=== PATIENT | female | born 1950 | race Caucasian/White ===

== ENCOUNTER → 2017-04-08 | Day surgery (SDC) | payer OTHER ==
[2017-04-03 15:00] LABS: BASOPHILS % 0.4 % (0.0-1.0); EOSINOPHILS # (AUTO) 0.2 (0.0-0.4); EOSINOPHILS % 2.4 % (0.0-6.0); HEMATOCRIT 42.4 % (34.2-44.1); HEMOGLOBIN 14.2 g/dL (12.0-16.0); LYMPHOCYTES # (AUTO) 2.2 (1.0-3.2); LYMPHOCYTES % 29.1 % (18.0-39.1); MEAN CORPUSCULAR HEMOGLOBIN 31.6 pg (28-32); MEAN CORPUSCULAR HGB CONC 33.5 g/dL (31-35); MEAN CORPUSCULAR VOLUME 94.2 fL (81-99); MONOCYTES # (AUTO) 0.6 (0.2-0.8); MONOCYTES % 8.4 % (4.4-11.3); NEUTROPHILS # (AUTO) 4.4 (2.1-6.9); NEUTROPHILS % 59.2 % (38.7-80.0); PLATELET COUNT 234 x10e3/uL (140-360); RED CELL DISTRIBUTION WIDTH 12.1 % (11.7-14.4)
[2017-04-03 15:19] LABS: ANION GAP 11.2 mmol/L (8-16); BLOOD UREA NITROGEN 17 mg/dL (7-26); BUN/CREATININE RATIO 22 (6-25); CALCIUM 9.1 mg/dL (8.4-10.2); CARBON DIOXIDE 30 mmol/L (22-29); CHLORIDE 103 mmol/L (98-107); CREATININE, SERUM 0.76 mg/dL (0.57-1.11); EST GLOMERULAR FILTRATION RATE > 60 ML/MIN (60-); GLUCOSE 93 mg/dL (74-118); POTASSIUM 4.2 mmol/L (3.5-5.1); SODIUM 140 mmol/L (136-145)
--- NOTE | 2017-04-03 15:47 | Diagnostic Imaging Report ---
PROCEDURE: Frontal and lateral views of the chest. COMPARISON: None. INDICATIONS: PRE OP BREAST EXCISION FINDINGS: Lines/tubes: None. Lungs: The lungs are well inflated. Mildly increased lucency in the upper lungs and mildly increased retrosternal air, which may reflect mild COPD. There is no evidence of pneumonia or pulmonary edema. Pleura: There is no pleural effusion or pneumothorax. Heart and mediastinum: The heart and the mediastinum are normal. Bones: No acute bony abnormality. IMPRESSION: 1. No acute cardiopulmonary abnormalities. Anjel Vasquez M.D. Dictated by: Anjel Vasquez M.D. on 04/03/2017 at 15:57 Electronically approved by: Anjel Vasquez M.D. on 04/03/2017 at 15:57
[~2017-04-08] MED LIST: ACETAMINOPHEN 1000 MG/100 ML IV ONE; DEXAMETHASONE SOD PHOS INJ 4 MG/ML VIAL ONE; FENTANYL CITRATE/PF 100MCG/2 ML INJ ONE; GABAPENTIN300 MG PO; LIDOCAINE HCL 2% LOCAL INJ 5 ML SDV VIAL INJ ONE; LIPITOR10 MG PO; MELOXICAM7.5 MG PO; MIDAZOLAM HCL 2 MG/2 ML VIAL ONE; MULTIVITAMIN PO; ONDANSETRON HCL INJ 2 MG/ML VIAL ONE; PAROXETINE HCL20 MG PO; PROPOFOL IV EMULSION 10 MG/ML 20 ML VIAL ONE; ROCURONIUM BROMIDE 10 MG/ML 5ML VIAL ONE; SEVOFLURANE INHAL SOLN 250 ML PEN BTL ONE; SUCCINYLCHOLINE 200 MG/10 ML SYR ONE; TRAZODONE HCL50 MG PO; VIT D3 PO; [UNRECOGNIZED DRUG - OTHER] PO
--- OUTSIDE RECORDS SUMMARY | 2017-04-08 10:10 | XMS REPORT ---
Author [facility] Address Unknown Phone Unavailable Care Team Providers Care Soaker Helper Name Role Phone CAROLYN ROSAS Unavailable Unavailable Problems This patient has no known problems. Allergies, Adverse Reactions, Alerts This patient has no known allergies or adverse reactions. Medications This patient has no known medications. Encounters Start Date/Time End Date/Time Encounter Type Admission Type Attending [facility] Facility Care Department Encounter ID 2017-03-11 00:00:00 2017-03-11 00:00:00 Outpatient [facility] [id number] 2017-03-09 13:34:39 2017-03-09 13:34:39 Outpatient [facility] [id number] 2017-03-09 13:34:27 2017-03-09 13:34:27 Outpatient [facility] [id number] 2017-02-17 10:54:13 2017-02-17 10:54:13 Outpatient [facility] [id number] 2017-02-06 00:00:00 2017-02-06 00:00:00 Outpatient [facility] [id number] 2017-01-28 00:00:00 2017-01-28 00:00:00 Outpatient [facility] [id number] 2016-12-08 00:00:00 2016-12-08 00:00:00 Outpatient [facility] [id number] 2016-10-28 00:00:00 2016-10-28 00:00:00 Outpatient [facility] [id number] 2016-10-08 09:55:53 2016-10-08 09:55:53 Outpatient [facility] [id number] 2016-10-01 10:31:01 2016-10-01 10:31:01 Outpatient [facility] [id number] 2016-09-11 00:00:00 2016-09-11 00:00:00 Outpatient [facility] [id number] 2016-09-03 13:14:36 2016-09-03 13:14:36 Outpatient [facility] [id number] 2016-07-31 15:56:33 2016-07-31 15:56:33 Outpatient [facility] [id number] Results Test Description Test Time Test Comments Text Results Atomic Results Result Comments CHEST 2 VIEWS [place] [address] Patient Name: KEVIN SORIA MR #: [id number] : 1950 Age/Sex: 67/F Req #: [id number] Adm Physician: Ordered by: CAROLYN ROSAS MD Report #: [id number] Location: [place] Room/Bed: Procedure: [id number] DX/CHEST 2 VIEWS Exam Date: 04/03/17 Exam Time: 1515 REPORT STATUS: Signed PROCEDURE: Frontal and lateral views of the chest. COMPARISON: None. INDICATIONS: PRE OP BREAST EXCISION FINDINGS: Lines/tubes: None. Lungs: The lungs are well inflated. Mildly increased lucency in the upper lungs and mildly increased retrosternal air, which may reflect mild COPD. There is no evidence of pneumonia or pulmonary edema. Pleura: There is no pleural effusion or pneumothorax. Heart and mediastinum: The heart and the mediastinum are normal. Bones: No acute bony abnormality. IMPRESSION: 1. No acute cardiopulmonary abnormalities. Luis M Vasquez M.D. Dictated by: LuisM Vasquez M.D. on 04/03/2017 at 15:57 Electronically approved by: Luis M Vasquez M.D. on 04/03/2017 at 15:57 Dictated By: LUIS M VASQUEZ MD [id number] Transcribed By: MANJIT on 04/03/17 [id number] COPY TO: CAROLYN ROSAS MD
--- NOTE | 2017-04-08 13:52 | Diagnostic Imaging Report ---
Lymphoscintigraphy Reason for Exam: RIght breast cancer; scheduled for sentinel lymph node biopsy Radiopharmaceutical: Tc-99m filtered sulfur colloid 715 microcuries Report: The radiotracer was given as two separate injections intradermally at the edge of the right areola at the 9 o'clock and 12 o'clock positions. A single focal area of tracer accumulation is seen in the right axilla. No accumulation of tracer is seen in the midline of the chest or in the neck. Impression: Injection for sentinel lymph node mapping. A single sentinel lymph node is identified in the right axilla. Signed by: Dr. Robina Eaton M.D. on 04/08/2017 1:48 PM
--- NOTE | 2017-04-08 15:02 | Operative Report ---
DATE OF PROCEDURE: April 08, 2017 PREOPERATIVE DIAGNOSIS: Carcinoma of the right breast. POSTOPERATIVE DIAGNOSIS: Carcinoma of the right breast. PROCEDURES 1. Right segmental mastectomy. 2. Right axillary sentinel lymph node excision with lymph node mapping. FREELANCE PATTERNMAKER: None. ANESTHESIA: General. INDICATIONS AND FINDINGS: Patient is a 67-year-old female who was found have a mass in the right breast. Biopsy revealed infiltrating ductal cell carcinoma. At surgery, patient was found to have a mass in the right breast at 12 o'clock position at about 5 cm from the nipple, which was removed with a segmental mastectomy with mass in the middle of the segmental mastectomy, grossly margins being free. Single sentinel node was identified and excised, and this was negative for metastatic disease. TECHNIQUE: After adequate general anesthesia and patient in supine position, the right breast and axilla were prepped and draped in sterile fashion with Hopewell solution. An elliptical incision was made encompassing the right breast, carried down through the subcutaneous tissue and a segment of breast where the mass was palpable was completely excised down to the chest wall. The mass was identified within the middle of the excised specimen with margins grossly free of tumor on my inspection. Hemostasis was achieved with electrocautery. The wound was irrigated with sterile water. Wound was infiltrated with 0.5% Marcaine. Wound was then closed with 2-0 Vicryl in the subcutaneous tissue and angely for the skin. Using the Neoprobe, the right axilla was examined and an area of increased activity was identified. Incision was made over this area and carried down through the subcutaneous tissue. Using Neoprobe, the sentinel node was localized and this was completely excised from surrounding tissues and submitted for frozen section, which was negative for metastatic disease. Hemostasis in the wound was seen to be adequate. The wound was then infiltrated with 0.5% Marcaine. The wound was closed with 3-0 Vicryl in the subcutaneous tissue and angely for the skin. Sterile dressing was applied to each wound. Patient tolerated the procedure well. Estimated blood loss was 20 mL. There were no complications. All counts were correct. Patient was taken to the recovery room in satisfactory condition. Job#: [id number] SAK cc:Dr. Marcel Deluna
== END | disposition home or self-care (01) ==
LOC: NM 10:08 → OR 10:08
PROVIDERS: ATTEND Surgery
DX: C50.911 Malignant neoplasm of unspecified site of right female breast (principal); D05.11 Intraductal carcinoma in situ of right breast; Z01.810 Encounter for preprocedural cardiovascular examination; Z01.812 Encounter for preprocedural laboratory examination; Z01.818 Encounter for other preprocedural examination; Z87.891 Personal history of nicotine dependence
CPT/HCPCS: 36415; 71046; 78195; 80048; 85025; 88307; 88333; 93005; A9541; J1100; J2001; J2250; J2405

== ENCOUNTER 2019-09-26 06:52 | Observation (INO) | payer MEDICARE, OTHER ==
[~2019-09-26] VITALS: Ht 157.5 cm; Wt 53.5 kg
[~2019-09-26 06:52] MED LIST changes: -ACETAMINOPHEN 1000 MG/100 ML IV ONE; +ARIMIDEX1 MG PO; -DEXAMETHASONE SOD PHOS INJ 4 MG/ML VIAL ONE; -FENTANYL CITRATE/PF 100MCG/2 ML INJ ONE; +HYDROCHLOROTHIA25 MG PO; -LIDOCAINE HCL 2% LOCAL INJ 5 ML SDV VIAL INJ ONE; -MIDAZOLAM HCL 2 MG/2 ML VIAL ONE; -ONDANSETRON HCL INJ 2 MG/ML VIAL ONE; -PROPOFOL IV EMULSION 10 MG/ML 20 ML VIAL ONE; -ROCURONIUM BROMIDE 10 MG/ML 5ML VIAL ONE; -SEVOFLURANE INHAL SOLN 250 ML PEN BTL ONE; -SUCCINYLCHOLINE 200 MG/10 ML SYR ONE; +VIT C PO
[2019-09-26] MEDS ORDERED: CELECOXIB 200 MG CAP ONE (07:18)
[2019-09-26] MEDS ORDERED: GABAPENTIN 300 MG CAP ONE (07:18)
[2019-09-26] MEDS ORDERED: DEXAMETHASONE SOD PHOS 10 MG/1 ML VIAL ONE (07:18)
[2019-09-26] MEDS ORDERED: CEFAZOLIN SOD 1 GM/NS 50ML 100 ML IV ONE (07:19)
[2019-09-26] MEDS ORDERED: ROPIVACAINE 246.25 MG, EPINEPHRINE HCL 1:1000 1ML 0.5 MG, CLONIDINE HCL 0.08 MG, KETORO... INJ ONE ×5 (08:00)
[2019-09-26] MEDS ORDERED: BACITRACIN 50,000 UNIT VIAL ONE (09:16)
[2019-09-26] MEDS ORDERED: VANCOMYCIN HCL 1,000 MG ONE (09:16)
[2019-09-26] MEDS ORDERED: TRANEXAMIC ACID 1,000 MG/10 ML ML ONE (09:17)
[2019-09-26] MEDS ORDERED: SODIUM CHLORIDE 0.9% 500ML 500 ML ONE (09:17)
[2019-09-26] MEDS ORDERED: ACETAMINOPHEN 1000 MG/100 ML 100 ML IV ONE (10:11)
[2019-09-26] MEDS ORDERED: DOCUSATE SODIUM 100 MG CAP PO PRN (11:00)
[2019-09-26] MEDS ORDERED: ZOLPIDEM TARTRATE 5 MG TAB PO PRN (11:00)
[2019-09-26] MEDS ORDERED: ONDANSETRON HCL INJ 2MG/ML 2ML 2 MG/ML VIAL IV PRN (11:00)
[2019-09-26] MEDS ORDERED: ACETAMINOPHEN 650 MG SUPP PR PRN (11:00)
[2019-09-26] MEDS ORDERED: KETOROLAC TROMETHAMINE 30 MG/ML VIAL IV PRN (11:00)
[2019-09-26] MEDS ORDERED: HYDROCODONE/APAP 5MG-325MG TAB PO PRN (11:00)
[2019-09-26] MEDS ORDERED: DIPHENHYDRAMINE HCL INJ 50 MG/ML VIAL IV PRN (11:00)
[2019-09-26] MEDS ORDERED: FENTANYL CITRATE/PF 100MCG/2 ML INJ ONE (11:29)
--- NOTE | 2019-09-26 11:47 | Operative Report ---
DATE OF PROCEDURE: 09/26/2019 SURGEON: Kwabena Malave MD SENIOR PHP SOFTWARE DEVELOPER: Vitaliy Abarca, certified PA. PREOPERATIVE DIAGNOSIS: Osteoarthritis, right knee. POSTOPERATIVE DIAGNOSIS: Osteoarthritis, right knee. PROCEDURE: Right total knee arthroplasty. INDICATIONS: The patient is an active 69-year-old lady, who has advanced osteoarthritis of her right knee. She has failed conservative management and would like to proceed with a right total knee replacement. The risks and benefits of the procedure were explained. All of her questions were answered. She states she understands and wishes to proceed. PROCEDURE IN DETAIL: The patient was brought to the operating room and placed under general anesthetic. She received prophylactic antibiotics, a regional block and tranexamic acid in the holding area. Her right lower extremity was prepped and draped in a sterile manner. A preoperative time-out was performed. The extremity was exsanguinated and a proximal tourniquet was inflated to 250 mmHg. An anterior approach with a medial parapatellar arthrotomy was performed. Clear synovial fluid was removed from the joint. Soft tissue releases were performed to bring the knee up into flexion with the patella everted. Meniscal remnants, marginal osteophytes, and the cruciate ligaments were removed. A Sher[employer] Persona knee system with a medial congruent tibial insert was used throughout the case. An extramedullary cutting guide was used to resect the proximal tibia. The cut was referenced off the affected medial compartment. The tibia was noted to be a size C. The central fin punch was drilled and impacted. Attention was directed towards the distal femur. An intramedullary cutting guide was used to resect the distal femur in 5 degrees of valgus and rotation referencing off a combination of landmarks including Whitesides line, the epicondylar axis, and the posterior condyles. The femoral component was a size 4. The anterior and posterior cuts were made. A trial reduction was then performed. A 10 mm medial congruent tibial insert provided appropriate soft tissue balancing in full extension and 90 degrees of flexion. The patella was resurfaced with a 29 mm patellar button. The thickness was checked before and after, and was right around 20 mm. The trial implants were then all removed. A 100 mL premixed pericapsular GENOVEVA injection was placed into the surrounding soft tissue. The knee was thoroughly irrigated with a shower tip pulsatile lavage. All bone cuts had been irrigated with a spray mixture of diluted polymyxin and vancomycin spray. The components were cemented into place using a single mix of high viscosity Biomet cement preloaded with end with gentamicin. Care was taken to remove extravasated cement. The wound was further irrigated while the cement cured. The arthrotomy was then closed with interrupted #1 Ethibond. The knee was put through flexion and extension to ensure a secure closure. The skin was closed with subcuticular Vicryl and angely. A sterile Aquacel bandage was applied. The patient was extubated and transported to the recovery room in stable condition. Blood loss was minimal. All needle and sponge counts were correct. Kwabena Malave MD DR/KALEB /[id number]
[2019-09-26] MEDS ORDERED: MORPHINE SULFATE INJ 4 MG/ML INJ 1ML ONE (12:15)
--- NOTE | 2019-09-26 12:35 | Diagnostic Imaging Report ---
EXAMINATION: KNEE RIGHT 1-2 VIEWS INDICATION: Postoperative COMPARISON: None FINDINGS: AP and lateral views of the right knee demonstrate immediate postoperative findings of right total knee replacement. Alignment is anatomic. No unexpected fracture. Postoperative soft tissue emphysema and small joint effusion. Surgical skin angely in place. IMPRESSION: Anatomic alignment status post right total knee replacement. Signed by: Josiah Parker MD on 09/26/2019 12:31 PM
[2019-09-26 15:22] VITALS: BP_SYST 103; BP_SYST 94; BP_DIAS 57; BP_DIAS 60
--- NOTE | 2019-09-26 15:22 | NUR ---
Pt received from PACU at this time. pt is aox3 and able to verbalize needs. Pt complains of right knee but refuses pain medication at this time. Breaths are even and unlabored on room air. Dressing to right knee is dry and intact.
[2019-09-26 16:53] VITALS: BP 103/57
[2019-09-26] MEDS: CELECOXIB 200 MG CAP PO SCH (17:22)
[2019-09-26] MEDS: CEFAZOLIN SOD 1 GM/NS 50ML 50 ML IV SCH (17:22)
[2019-09-26] MEDS: ASPIRIN 325 MG TAB PO SCH (17:22)
[2019-09-26] MEDS: SODIUM CHLORIDE 0.9% 1000ML 1,000 ML IV SCH (17:22)
--- NOTE | 2019-09-26 19:19 | NUR ---
WALKING ROUNDS PERFORMED, RECEIVED PT LAYING SUPINE IN BED WITH (R) LEG IN CPM, SETTINGS 0 EXTENSION, 50 FLEXION. NO S/SX OF DISTRESS NOTED. LEFT PT LAYING SEMI FOWLERS IN BED, BED IN LOW LOCKED POSITION, SIDE RAILS UPX2, CALL LIGHT AND PHONE WITHIN REACH.
[2019-09-26 20:00] VITALS: BP 95/57
[2019-09-26 20:57] VITALS: BP 95/57
[2019-09-27] VITALS: BP 92/60
[2019-09-27] MEDS: CEFAZOLIN SOD 1 GM/NS 50ML 50 ML IV SCH ×2 (02:04→09:03)
[2019-09-27] MEDS: SODIUM CHLORIDE 0.9% 1000ML 1,000 ML IV SCH (03:00)
[2019-09-27 04:00] VITALS: BP 119/64
[2019-09-27 04:49] LABS: HEMATOCRIT 35.6 % (34.2-44.1); HEMOGLOBIN 11.8 g/dL (12.0-16.0)
--- NOTE | 2019-09-27 07:00 | NUR ---
bedside shift report received pt in stable condition, denies pain at this time, updated on poc voiced understanding, dsg to right knee c/d/i, no othe co vocied call light in reach will continue to monitor
--- NOTE | 2019-09-27 08:17 | NUR ---
DR GUERRA OFFICE PREARRANGED FOLLOWING DISCHARGE PLAN OF:[address], [place] [address] HOME HEALTH WITH INTERIM CONFIRMED WITH [facility] [phone] DME 3 IN ONE COMMODE, CPM AND ROLLING WALKER WITH WHEELS. PROVIDED BY [employer] [phone] [employer] [employer] SIGNED AND ON CHART COPY LEFT WITH PATIENT GAVE CARD FOR QUESTIONS AND OR CONCERNS.
[2019-09-27 08:28] VITALS: BP 112/76
--- NOTE | 2019-09-27 08:30 | NUR ---
CALLED BACK INTO ROOM, SHE STATES SHE IS GOING TO HER [facility] FOR RECOVERY [address] [facility] [id number] , UPDATED HOME HEALTH
[2019-09-27 08:49] VITALS: BP 112/76
[2019-09-27] MEDS ORDERED: GABAPENTIN 300 MG CAP PO SCH (09:00)
[2019-09-27] MEDS ORDERED: GABAPENTIN 100 MG CAP PO SCH (09:00)
[2019-09-27] MEDS ORDERED: ATORVASTATIN 10 MG TAB PO SCH (09:00)
[2019-09-27] MEDS ORDERED: PAROXETINE HCL 20 MG TAB PO SCH (09:00)
[2019-09-27] MEDS ORDERED: ANASTROZOLE 1 MG TAB PO SCH (09:00)
[2019-09-27] MEDS: ASPIRIN 325 MG TAB PO SCH (09:02)
[2019-09-27] MEDS: CELECOXIB 200 MG CAP PO SCH (09:02)
--- NOTE | 2019-09-27 10:22 | Consultation ---
DATE OF CONSULTATION: Brief Consultation PCP: Dr. Tim Escalona. REASON FOR CONSULTATION: Medical management. HISTORY OF PRESENT ILLNESS: The patient is a pleasant 69-year-old female, status post right total knee replacement. The patient is otherwise stable. Home medication resumed. The patient had no chest pain or shortness of breath. PAST MEDICAL HISTORY: Osteoarthritis. PAST SURGICAL HISTORY: Three , three rotator cuff surgery, just now right total knee replacement. Right breast surgery for breast cancer. Tonsillectomy. SOCIAL HISTORY: The patient does not smoke or use alcohol. No regular drugs. ALLERGIES: TO CODEINE. HOME MEDICATIONS: The patient is on Arimidex, Lipitor, gabapentin, HCTZ, Paxil, and vitamin D3. PHYSICAL EXAMINATION: VITAL SIGNS: Temperature is 98, blood pressure 119/64, pulse rate is 72, and respirations 18. GENERAL: The patient is not in distress. Awake. HEENT: Normocephalic and atraumatic. Anicteric. NECK: Supple grossly. PULMONARY: Clear. CARDIOVASCULAR: Regular rate and rhythm. ABDOMEN: Soft and unremarkable. EXTREMITIES: Status post right knee replacement. NEUROLOGIC: No focal deficits. LABORATORY DATA: Hemoglobin and hematocrit 11.8 and 35.6. IMPRESSION: 1. Status post total right knee replacement. The patient is stable. No complication. Begin physical therapy. 2. History of breast cancer, hypertension, and dyslipidemia. PLAN: Continue with adjustment of medication. Discontinue IV fluids. Resume home medication. PT/OT. The patient should be able to go home within 24 to 48 hours. Thank you, Dr. Malave, for this consultation. We will adjust the patient's medication accordingly. MD SUYAPA Jain/MODL /[id number] cc: Tim Escalona MD
[2019-09-27] MEDS: HYDROCODONE/APAP 7.5MG-325MG 1 EA TAB PO PRN ×2 (11:00→14:00)
[2019-09-27] MEDS ORDERED: ACETAMINOPHEN 1000 MG/100 ML IV PRN (11:00)
[2019-09-27 12:21] VITALS: BP 142/79
[2019-09-27] MEDS ORDERED: ONDANSETRON HCL 4 MG ORAL DISINTEGRATING TAB PO PRN (13:30)
[2019-09-27] MEDS ORDERED: ATORVASTATIN 40 MG TAB PO SCH (21:00)
== END 2019-09-27 14:36 | disposition home health service (06) ==
LOC: OR 06:52 → PACU V 10:59 → MED/SURG 15:26
PROVIDERS: ADMIT Specialist; ATTEND Specialist
DX: M17.11 Unilateral primary osteoarthritis, right knee (principal); I10 Essential (primary) hypertension; Z88.5 Allergy status to narcotic agent; E78.5 Hyperlipidemia, unspecified; Z85.3 Personal history of malignant neoplasm of breast; Z11.59 Encounter for screening for other viral diseases
CPT/HCPCS: 27447; 36415; 73560; 85014; 85018; 86850; 86900; 86920; 97116 ×2; 97162; 97530; C1713; G0378 ×2; J0131 ×2; J0171; J0690 ×2; J1100; J1885; J2270; J2795; J3010; J3370; J7030; J7040; U0002

== ENCOUNTER 2023-04-02 08:44 | Emergency (ER) | payer MEDICARE ==
[~2023-04-02] VITALS: Ht 157.5 cm; Wt 53.5 kg
[2023-04-02 09:09] LABS: BASOPHILS % 0.3 % (0.0-1.0); EOSINOPHILS # (AUTO) 0.3 (0.0-0.4); EOSINOPHILS % 3.3 % (0.0-6.0); HEMATOCRIT 44.1 % (34.2-44.1); HEMOGLOBIN 14.5 g/dL (12.0-16.0); LYMPHOCYTES % 22.2 % (18.0-39.1); MEAN CORPUSCULAR HEMOGLOBIN 31.3 pg (28-32); MEAN CORPUSCULAR HGB CONC 32.9 g/dL (31-35); MEAN CORPUSCULAR VOLUME 95.2 fL (81-99); MONOCYTES # (AUTO) 0.8 (0.2-0.8); MONOCYTES % 8.6 % (4.4-11.3); NEUTROPHILS # (AUTO) 5.8 (2.1-6.9); NEUTROPHILS % 65.4 % (38.7-80.0); PLATELET COUNT 281 x10e3/uL (140-360); RED BLOOD COUNT 4.63 x10e6/uL (3.6-5.1); RED CELL DISTRIBUTION WIDTH 12.4 % (11.7-14.4); WHITE BLOOD COUNT 8.81 x10e3/uL (4.8-10.8)
[2023-04-02 09:34] LABS: ALBUMIN/GLOBULIN RATIO 1.2 (0.8-2.0); BILIRUBIN,TOTAL 1.3 mg/dL (0.2-1.2); CALCIUM 9.6 mg/dL (8.4-10.2); CREATININE, SERUM 0.76 mg/dL (0.57-1.11); TOTAL PROTEIN 7.3 g/dL (6.5-8.1)
[2023-04-02 09:56] LABS: LIPASE 31 U/L (8-78)
[2023-04-02 10:12] VITALS: O2SAT 98
[2023-04-02 10:16] LABS: TROPONIN I < 0.001 ng/mL (0-0.300)
== END 2023-04-02 11:20 | disposition home or self-care (01) ==
LOC: ER 08:48
DX: R07.89 Other chest pain (principal); F43.9 Reaction to severe stress, unspecified; Z85.3 Personal history of malignant neoplasm of breast
CPT/HCPCS: 36415; 71045; 80053; 83690; 84484; 85025; 93005; 99284